=== PATIENT | male | born 1960 | race African-American/Black ===

== ENCOUNTER 2016-09-20 13:40 | Emergency (ER) | payer MEDICARE, OTHER ==
[2016-09-20 15:14] LABS: ABSOLUTE BASOPHILS # (AUTO) 0.1 10^3/uL (0.0-0.2); ABSOLUTE EOSINOPHILS # (AUTO) 0.1 10^3/uL (0.0-0.6); ABSOLUTE MONOCYTES (AUTO) 0.5 10^3/uL (0.1-1.4); ABSOLUTE NEUT (AUTO) 7.7 10^3/uL (1.7-8.2); BASOPHILS % (AUTO) 0.6 % (0-2); EOSINOPHILS % (AUTO) 0.6 % (0-6); HEMATOCRIT 44.5 % (37.9-51.0); HEMOGLOBIN 15.2 g/dL (13.5-17.0); HGB HCT DIFFERENCE 1.1; LYMPHOCYTES % (AUTO) 10.5 % (13-45); MEAN CORPUSCULAR HEMOGLOBIN 30.5 pg (27.0-33.4); MEAN CORPUSCULAR HGB CONC 34.2 g/dL (32.0-36.0); MEAN CORPUSCULAR VOLUME 89 fl (80-97); RED BLOOD COUNT 4.99 10^6/uL (4.35-5.55); RED CELL DISTRIBUTION WIDTH 12.7 % (11.5-14.0); SEGMENTED NEUTROPHILS % (AUTO) 83.3 % (42-78); WHITE BLOOD COUNT 9.3 10^3/uL (4.0-10.5)
[2016-09-20 15:33] LABS: ALANINE AMINOTRANSFERASE 52 U/L (21-72); ALBUMIN 4.7 g/dL (3.5-5.0); ALKALINE PHOSPHATASE 76 U/L (38-126); ANION GAP 13 (5-19); ASPARTATE AMINO TRANSFERASE 31 U/L (17-59); BILIRUBIN,TOTAL 1.1 mg/dL (0.2-1.3); BLOOD UREA NITROGEN 22 mg/dL (7-20); CALCIUM 10.1 mg/dL (8.4-10.2); CARBON DIOXIDE 31 mmol/L (22-30); CHLORIDE 96 mmol/L (98-107); CREATININE RESULT 1.96 mg/dL (0.52-1.25); GLUCOSE 118 mg/dL (75-110); POTASSIUM 3.4 mmol/L (3.6-5.0); TOTAL PROTEIN 8.1 g/dL (6.3-8.2)
[2016-09-20 15:34] LABS: ALCOHOL < 10 mg/dL (NONE DETECTED)
[2016-09-20 16:27] LABS: APPEARANCE,URINE CLEAR; BILIRUBIN,URINE NEGATIVE (NEGATIVE); GLUCOSE, URINE NEGATIVE (NEGATIVE); KETONES,URINE NEGATIVE (NEGATIVE); LEUKOCYTE ESTERASE,URINE NEGATIVE (NEGATIVE); NITRITE,URINE NEGATIVE (NEGATIVE); PROTEIN,URINE NEGATIVE (NEGATIVE); URINE SPECIFIC GRAVITY 1.004; UROBILINOGEN,URINE NEGATIVE mg/dL (<2.0)
[2016-09-20 16:48] LABS: URINE BARBITURATES SCREEN NEGATIVE; URINE METHADONE SCREEN NEGATIVE; URINE OPIATES LOW NEGATIVE; URINE PHENCYCLIDINE SCREEN NEGATIVE
[2016-09-20] MEDS ORDERED: NORMAL SALINE 1000 ML 1,000 ML IV PRN (18:44)
--- NOTE | 2016-09-20 19:34 | ER Document Report ---
ED Seizure - General Chief Complaint: Probable Seizure Stated Complaint: POSSIBLE SEIZURES Time seen by provider: 19:34 Mode of Arrival: Stretcher Information source: Patient, Relative - [facility] Patient complains to provider of: History of seizures Number of episodes: 1 Quality of pain: No pain Continued on arrival to ED: No Can details of seizure be obtained/verified: Yes Episode witnessed (by whom): Yes - family members Current seizure medications: Keppra History of: CVA Character of seizure: Partial loss/conscious, Focal shaking Post-ictal symptoms: None Injuries: None Associated Symptoms: None Notes: Patient is a 56-year-old male presenting to the emergency room via EMS and multiple family members for complaints of seizure that occurred just prior to arrival, patient has a history of seizures from a previous CVA, his last seizure was approximately 8 months ago, patient's family member reports that she received a call from patient stating that he wasn't feeling well, by the time she got to his home just a few minutes later she found him lying on the floor, semi-unconscious with twitching on his right leg and arm that he was unable to control, she rolled him over to his left side, the episode lasted approximately 30 minutes, and then he was drowsy and postictal for short period of time afterwards lasting another 30-45 minutes, patient denies any pain or injury from the fall, he does report feeling off throughout the day starting early in the morning, and feeling quite drowsy, he reports that this is typically how he feels before having a seizure in the past, at time of my evaluation he reports feeling much better with no symptoms and no pain, he does report that his Keppra was increased to 1500 mg twice a day approximately 8 months ago, he denies missing any doses of this or his other medications - Related Data Allergies/Adverse Reactions: No Known Allergies Allergy (Verified 07/24/15 23:21) Past Medical History - General Information source: Patient, Relative - Social History Smoking Status: Never Smoker Family History: Reviewed & Not Pertinent - Past Medical History Cardiac Medical History: Reports: Hx Congestive Heart Failure, Hx Hypertension Neurological Medical History: Reports: Hx Cerebrovascular Accident - September 2013, with right-sided deficits., Hx Seizures Psychiatric Medical History: Reports: Hx Depression Past Surgical History: Reports: Hx Oral Surgery - jaw - Immunizations Hx Diphtheria, Pertussis, Tetanus Vaccination: Yes Review of Systems - Review of Systems Constitutional: No symptoms reported EENT: No symptoms reported Cardiovascular: No symptoms reported Respiratory: No symptoms reported Gastrointestinal: No symptoms reported Genitourinary: No symptoms reported Male Genitourinary: No symptoms reported Musculoskeletal: No symptoms reported Skin: No symptoms reported Hematologic/Lymphatic: No symptoms reported Neurological/Psychological: Seizure -: Yes All other systems reviewed and negative Physical Exam - Vital signs Vitals: Temp 98.3 F 09/20/16 14:00 Interpretation: Normal - General General appearance: Appears well, Alert - HEENT Head: Normocephalic, Atraumatic Eyes: Normal Pupils: PERRL - Respiratory Respiratory status: No respiratory distress Chest status: Nontender Breath sounds: Normal Chest palpation: Normal - Cardiovascular Rhythm: Regular Heart sounds: Normal auscultation Murmur: No - Abdominal Inspection: Normal Distension: No distension Bowel sounds: Normal Tenderness: Nontender Organomegaly: No organomegaly - Back Back: Normal, Nontender - Extremities General upper extremity: Normal inspection, Nontender, Normal color, Normal ROM , Normal temperature General lower extremity: Normal inspection, Nontender, Normal color, Normal ROM , Normal temperature, Normal weight bearing. No: Juan Jose's sign - Neurological Neuro grossly intact: Yes Cognition: Normal Orientation: AAOx4 Louis Coma Scale Eye Opening: Spontaneous Louis Coma Scale Verbal: Oriented [place] Coma Scale Motor: Obeys Commands Louis Coma Scale Total: 15 Speech: Normal Motor strength normal: LUE, RUE, LLE, RLE Sensory: Normal - Psychological Associated symptoms: Normal affect, Normal mood - Skin Skin Temperature: Warm Skin Moisture: Dry Skin Color: Normal Course - Re-evaluation Re-evalutation: 09/21/16 03:33 No further seizure activity observed in the emergency room, CT head shows no acute findings, labs are relatively normal except for mildly elevated creatinine , slightly higher than previous ones but he is noted to have elevated creatinine in the past, patient was advised to follow-up with a neurologist, or return if symptoms worsen, patient and family members at bedside acknowledge understanding and agreement with this plan - Vital Signs Vital signs: Temp Pulse Resp BP Pulse Ox 98.3 F 17 145/80 H 95 09/20/16 14:05 09/20/16 22:00 09/20/16 21:01 09/20/16 22:00 - Laboratory Result Diagrams: 09/20/16 15:03 09/20/16 15:03 Laboratory results interpreted by me: 09/20/16 09/20/16 15:03 15:03 Seg Neutrophils % 83.3 H Lymphocytes % 10.5 L Potassium 3.4 L Chloride 96 L Carbon Dioxide 31 H BUN 22 H Creatinine 1.96 H Est GFR ( Amer) 43 L Est GFR (Non-Af Amer) 36 L Glucose 118 H - Diagnostic Test Radiology reviewed: Image reviewed, Reports reviewed Discharge - Discharge Clinical Impression: Seizure, Seizure disorder Condition: Stable Disposition: HOME, SELF-CARE Instructions: Seizure, Known Epileptic (OM), Neurologist Additional Instructions: Follow up with your primary care provider and neurologist in one to 2 days. Return to the emergency room immediately if symptoms worsen or any additional concerns. Forms: Elevated Blood Pressure
[2016-09-20 21:45] VITALS: BP 145/80
== END 2016-09-20 22:20 | disposition home or self-care (01) ==
LOC: ER 13:40
DX: G40.909 Epilepsy, unspecified, not intractable, without status epilepticus (principal); I10 Essential (primary) hypertension; Z79.899 Other long term (current) drug therapy
CPT/HCPCS: 99284; 96360; 36415; 80177; 82962; 80307 ×2; 83735; 85025; 80053; 81001; 70450; J7030